=== PATIENT | male | born 1995 | race Caucasian/White ===

== ENCOUNTER 2018-12-27 22:16 | Emergency (ER) | payer OTHER ==
[~2018-12-27] VITALS: Ht 190.5 cm; Wt 63.5 kg
[2018-12-27 22:20] VITALS: Ht 190.5 cm; Wt 63.5 kg
[2018-12-27 23:20] LABS: BASOPHIL % 0.6 % (0-2); PLATELET COUNT 207 x10^3mcL (130-400); RED CELL DISTRIBUTION WIDTH 13.2 % (11.5-14.5)
[2018-12-27 23:26] LABS: CALCIUM 8.1 mg/dL (8.5-10.1); CARBON DIOXIDE 27.5 mmol/L (21-32); CHLORIDE SERUM 107 mmol/L (98-107); CREATININE SERUM 0.8 mg/dL (0.7-1.3); GFR1 > 60 mL/min; GLUCOSE SERUM 123 mg/dL (74-106); POTASSIUM SERUM 3.1 mmol/L (3.5-5.1); SODIUM SERUM 144 mmol/L (136-145)
[2018-12-27 23:38] LABS: ALBUMIN 3.7 g/dL (3.4-5.0); ALKALINE PHOSPHATASE 110 U/L (46-116); ALT/SGPT 12 U/L (16-63); AST/SGOT 7 U/L (15-37); BILIRUBIN TOTAL 0.4 mg/dL (0.20-1.00); T4(THYROXINE) 7.6 ug/dL (4.7-13.3); TOTAL PROTEIN, SERUM 7.5 g/dL (6.4-8.2)
[2018-12-28 02:07] LABS: AMPHETAMINE QUAL UR NONE DETECTED (See below)
[2018-12-28 09:36] VITALS: BP 123/78
== END 2018-12-28 09:44 ==
LOC: ED 22:16
PROVIDERS: Emergency Medicine
DX: F32.9 Major depressive disorder, single episode, unspecified (principal); T51.91XA Toxic effect of unspecified alcohol, accidental (unintentional), initial encounter; R45.851 Suicidal ideations; E87.6 Hypokalemia; Y92.89 Other specified places as the place of occurrence of the external cause
CPT/HCPCS: G0480; J7030; Q0092